=== PATIENT | female | born 1990 | race African-American/Black ===

== ENCOUNTER 2024-09-15 23:23 | Emergency (ER) | payer SELFPAY ==
[2024-09-15 23:30] VITALS: BP 102/82; PULSE 93; RESP 16; TEMP 37.8; O2SAT 98
--- OUTSIDE RECORDS SUMMARY | 2024-09-15 23:59 | XMS_ITS | Clinical Summary ---
Author Organization [facility] [employer] Address [address] [place] [address] Care Team Providers Care Rn Production Name Role Phone [place] Denise MD Primary Care Provider Source Comments [facility] [employer],non-owned Affiliates and Associated Physician Practices is amultiple site organization consisting of ambulatory clinics and hospital sitesin [place], [place], [place] and [place]. This disclosure is being madepursuant to the Care Everywhere program and may not contain all information available regarding this patient. Last updated 18.[facility] [employer] Allergies Active Allergy Reactions Criticality Noted Date Comments Cephalexin Rash Medium 06/09/2017 Penicillins 02/09/2016 Medications * Be aware that medications may not be up to date on this document. Alwaysverify current medications with the patient. Medication Sig Dispensed Refills Start Date End Date Status Vit-Fe Fumarate-FA ( VITAMIN) 28-0.8 MG tablet Take 1 tablet by mouth once daily Active guaiFENesin ER 12hr (MUCINEX) 600 MG tablet Take 1 tablet by mouth every 12 hours 30 tablet 06/09/2017 Active loratadine (CLARITIN) 10 MG tablet Take 1 tablet by mouth once daily 30 tablet 3 06/09/2017 Active benzonatate (TESSALON PERLES) 100 MG capsule Take 1 capsule by mouth 3 times daily as needed for Cough 30 capsule 06/09/2017 Active Active Problems Problem Noted Date Diagnosed Date Shortness of breath 06/09/2017 Supervision of other normal , antepartu m 06/09/2017 Social History Tobacco Use Types Packs/Day Years Used Date Smoking Tobacco: Never Smokeless Tobacco: Never Alcohol Use Standard Drinks/Week Comments No 0 (1 standard drink = 0.6 oz pur e alcohol) Sex and Gender Information Value Date Recorded Sex Assigned at Not on file Gender Identity Not on file Sexual Orientation Not on file Last Filed Vital Signs Vital Sign Reading Time Taken Comments Blood Pressure 117/74 06/09/2017 8:37 AM [employer]OCIATE PROGRAM[employer] Pulse 75 02/09/2016 7:04 AM CDT Temperature 36.8 C (98.3 F) 06/09/2017 6:36 AM ASSOCIATE PROGRAMMER ANALYST Respiratory Rate 16 06/09/2017 7:39 AM ASSOCIATE PROGRAMMER ANALYST Oxygen Saturation 98% 06/09/2017 8:39 AM ASSOCIATE PROGRAMMER ANALYST Inhaled Oxygen Concentration - - Weight 62.6 kg (138 lb) 02/09/2016 7:04 AM CDT Height 162.6 cm (5' 4.02 ) 02/09/2016 7:04 AM CD T Body Mass Index 23.68 02/09/2016 7:04 AM CDT Plan of Treatment Health Maintenance Due Date Last Done Comments PAP SMEAR 1992 HIV SCREENING 12/27/2007 HEPATITIS C SCREENING 12/22/2010 DTAP/TDAP/TD VACCINES (1 - Tdap) 12/27/2011 HEPATITIS B VACCINE (1 of 3 - 19+ 3-dose series) 12/27/2011 COVID-19 VACCINE (1 - 2023-2 5 season) 2024 INFLUENZA VACCINE (#1) 2024 DEPRESSION SCREENING 08/01/2024 ZOSTER VACCINE (1 of 2) 2042 HIB VACCINE Aged Out No longer eligi ble based on patient's age to complete this topic HPV VACCINE Aged Out No longer eligi ble based on patient's age to complete this topic MENINGOCOCCAL (Group B) VACCINE Aged Out No longer eligible based on patient's age to complete this topic MENINGOCOCCAL VACCINE Aged Out No ezra daphne eligible based on patient's age to complete this topic PNEUMOCOCCAL VACCINE Aged Out No long er eligible based on patient's age to complete this topic Advance Directives * Full Code (Latest Code Status on File) Date Activated Date Inactivated Comments 06/09/2017 7:32 AM 06/09/2017 10:03 AM * Full Code Date Activated Date Inactivated Comments 06/09/2017 5:13 AM 06/09/2017 7:32 AM Care Teams Rn Production Relationship Specialty Start Date End Date [place] Denise MD PCP - General Family Medicine 06/09/17
--- OUTSIDE RECORDS SUMMARY | 2024-09-15 23:59 | XMS_ITS | Data Portability ---
Author Organization [facility] Address [address] [place] [address] Care Team Providers Care Rural Health Consultant Name Role Phone NICHOLE RIBEIRO Raw Shellfish Preparer Assessment No assessment recorded. Plan of Treatment Reminders Order Date Submit Date Provider Last Modified By Organization Details Last Modified Time Details Appointments None recorded. Lab influenza virus A + B + SARS-CoV-2 (COVID19) Ag panel, rapid IA, upper respiratory specimen 2023 024 [email or web address] In-Office Order, Internal Use Only DO Not Attach Compendium DO Not Attach Compendium, Do Not Delete/merge, [id number] 13:34:56 rapid strep group A, throat 2023 024 [email or web address] In-Office Order, Internal Use Only DO Not Attach Compendium DO Not Attach Compendium, Do Not Delete/merge, [id number] 4 10:26:00 Referral None recorded. Procedures None recorded. Surgeries None recorded. Imaging None recorded. Medication Orders clindamycin HCl 300 mg capsule 2023 024 [address] [facility] [address], [address], 4 12:05:00 Diflucan 150 mg tablet 2023 024 [email or web address] 1 [facility] [address], [address], 4 15:00:32 ceftriaxone 1 gram solution for injection 2022 023 [email or web address] Not available 3 10:09:52 ketorolac 60 mg/2 mL intramuscul ar solution 2022 023 bluma 1 Not available 4 11:06:11 tramadol 50 mg tablet 2022 [email or web address] [facility] [address], [address], 4 12:05:11 doxycycline monohydrate 100 mg capsule [address] [facility] [address], [address], 4 12:05:02 Medrol (Cabrera) 4 mg tablets in a dose pack [address] [facility] [address], [address], 4 12:05:03 Patient TargetsNo targets recorded. Patient InstructionsNo instructions recorded. Reason for Referral None Reported. Results Created Date Observation Date Name Description Value Unit Range Abnormal Flag Note LastModifiedBy Organization Detail LastModifiedTime 10/14/19 24 10/18/2023 COMPR EHENS OSIRIS METAB OLIC PANEL glucose 83 mg/dL 65-99 normal Fasti ng refer ence inter braulio Not Available [employer] [address] [address] [place], [address], 10/18/2023 17:26:14 10/14/19 24 10/18/2023 COMPR EHENS OSIRIS METAB OLIC PANEL urea nitrogen (BUN) 11 mg/dL 7-25 normal Not Available [facility] [address] [address] [place], [address], 10/18/2023 17:26:14 10/14/19 24 10/18/2023 COMPR EHENS OSIRIS METAB OLIC PANEL creatinine 0.99 mg/dL 0.50-0 .97 high Not Available [address], [address], 10/18/2023 17:26:14 10/14/19 24 10/18/2023 COMPR EHENS OSIRIS METAB OLIC PANEL eGFR 79 mL/mi n/1.7 3m2 > or = 60 normal Not Available [address], [address], 10/18/2023 17:26:14 10/14/19 24 10/18/2023 COMPR EHENS OSIRIS METAB OLIC PANEL BUN/creatini ne ratio 11 (calc ) 6-22 normal Not Available [address], [address], 10/18/2023 17:26:14 10/14/19 24 10/18/2023 COMPR EHENS OSIRIS METAB OLIC PANEL sodium 140 mmol/ L 135-14 6 normal Not Available [address], [address], 10/18/2023 17:26:14 10/14/19 24 10/18/2023 COMPR EHENS OSIRIS METAB OLIC PANEL potassium 3.7 mmol/ L 3.5-5. 3 normal Not Available [address], [address], 10/18/2023 17:26:14 10/14/19 24 10/18/2023 COMPR EHENS OSIRIS METAB OLIC PANEL chloride 102 mmol/ L 98-110 normal Not Available [address], [address], 10/18/2023 17:26:14 10/14/19 24 10/18/2023 COMPR EHENS OSIRIS METAB OLIC PANEL carbon dioxide 27 mmol/ L 20-32 normal Not Available [address], [address], 10/18/2023 17:26:14 10/14/19 24 10/18/2023 COMPR EHENS OSIRIS METAB OLIC PANEL calcium 10.1 mg/dL 8.6-10 .2 normal Not Available [address], [address], 10/18/2023 17:26:14 10/14/19 24 10/18/2023 COMPR EHENS OSIRIS METAB OLIC PANEL protein, total 8.8 g/dL 6.1-8. 1 high Not Available [address], [address], 10/18/2023 17:26:14 10/14/19 24 10/18/2023 COMPR EHENS OSIRIS METAB OLIC PANEL albumin 4.9 g/dL 3.6-5. 1 normal Not Available [address], [address], 10/18/2023 17:26:14 10/14/19 24 10/18/2023 COMPR EHENS OSIRIS METAB OLIC PANEL globulin 3.9 g/dL_ (calc ) 1.9-3. 7 high Not Available [address], [address], 10/18/2023 17:26:14 10/14/19 24 10/18/2023 COMPR EHENS OSIRIS METAB OLIC PANEL albumin/glob ulin ratio 1.3 (calc ) 1.0-2. 5 normal Not Available [address], [address], 10/18/2023 17:26:14 10/14/19 24 10/18/2023 COMPR EHENS OSIRIS METAB OLIC PANEL bilirubin, total 0.5 mg/dL 0.2-1. 2 normal Not Available [address], [address], 10/18/2023 17:26:14 10/14/19 24 10/18/2023 COMPR EHENS OSIRIS METAB OLIC PANEL alkaline phosphatase 54 U/L 31-125 normal Not Available [address], [address], 10/18/2023 17:26:14 10/14/19 24 10/18/2023 COMPR EHENS OSIRIS METAB OLIC PANEL AST 25 U/L 10-30 normal Not Available [address], [address], 10/18/2023 17:26:14 10/14/19 24 10/18/2023 COMPR EHENS OSIRIS METAB OLIC PANEL ALT 11 U/L 6-29 normal Not Available [address], [address], 10/18/2023 17:26:14 10/14/19 24 10/18/2023 CBC (INCL UDES DIFF/ PLT) white blood cell count 8.3 thous and/u L 3.8-10 .8 normal Not Available [address], [address], 10/18/2023 17:26:15 10/14/19 24 10/18/2023 CBC (INCL UDES DIFF/ PLT) red blood cell count 4.29 malick on/uL 3.80-5 .10 normal Not Available [address], [address], 10/18/2023 17:26:15 10/14/19 24 10/18/2023 CBC (INCL UDES DIFF/ PLT) hemoglobin 12.2 g/dL 11.7-1 5.5 normal Not Available [address], [address], 10/18/2023 17:26:15 10/14/19 24 10/18/2023 CBC (INCL UDES DIFF/ PLT) hematocrit 37.1 % 35.0-4 5.0 normal Not Available [address], [address], 10/18/2023 17:26:15 10/14/19 24 10/18/2023 CBC (INCL UDES DIFF/ PLT) MCV 86.5 fL 80.0-1 00.0 normal Not Available [address], [address], 10/18/2023 17:26:15 10/14/19 24 10/18/2023 CBC (INCL UDES DIFF/ PLT) MCH 28.4 pg 27.0-3 3.0 normal Not Available [address], [address], 10/18/2023 17:26:15 10/14/19 24 10/18/2023 CBC (INCL UDES DIFF/ PLT) MCHC 32.9 g/dL 32.0-3 6.0 normal Not Available [address], [address], 10/18/2023 17:26:15 10/14/19 24 10/18/2023 CBC (INCL UDES DIFF/ PLT) RDW 13.4 % 11.0-1 5.0 normal Not Available [address], [address], 10/18/2023 17:26:15 10/14/19 24 10/18/2023 CBC (INCL UDES DIFF/ PLT) platelet count 272 thous and/u L 140-40 0 normal Not Available [address], [address], 10/18/2023 17:26:15 10/14/19 24 10/18/2023 CBC (INCL UDES DIFF/ PLT) MPV 12.2 fL 7.5-12 .5 normal Not Available [address], [address], 10/18/2023 17:26:15 10/14/19 24 10/18/2023 CBC (INCL UDES DIFF/ PLT) absolute neutrophils 4490 cells /uL 1500-7 800 normal Not Available [address], [address], 10/18/2023 17:26:15 10/14/19 24 10/18/2023 CBC (INCL UDES DIFF/ PLT) absolute lymphocytes 3137 cells /uL 850-39 00 normal Not Available [address], [address], 10/18/2023 17:26:15 10/14/19 24 10/18/2023 CBC (INCL UDES DIFF/ PLT) absolute monocytes 398 cells /uL 200-95 0 normal Not Available [address], [address], 10/18/2023 17:26:15 10/14/19 24 10/18/2023 CBC (INCL UDES DIFF/ PLT) absolute eosinophils 191 cells /uL 15-500 normal Not Available [address], [address], 10/18/2023 17:26:15 10/14/19 24 10/18/2023 CBC (INCL UDES DIFF/ PLT) absolute basophils 83 cells /uL 0-200 normal Not Available [address], [address], 10/18/2023 17:26:15 10/14/19 24 10/18/2023 CBC (INCL UDES DIFF/ PLT) neutrophils 54.1 % normal Not Available [address], [address], 10/18/2023 17:26:15 10/14/19 24 10/18/2023 CBC (INCL UDES DIFF/ PLT) lymphocytes 37.8 % normal Not Available [address], [address], 10/18/2023 17:26:15 10/14/19 24 10/18/2023 CBC (INCL UDES DIFF/ PLT) monocytes 4.8 % normal Not Available [address], [address], 10/18/2023 17:26:15 10/14/19 24 10/18/2023 CBC (INCL UDES DIFF/ PLT) eosinophils 2.3 % normal Not Available [address], [address], 10/18/2023 17:26:15 10/14/19 24 10/18/2023 CBC (INCL UDES DIFF/ PLT) basophils 1.0 % normal Not Available [address], [address], 10/18/2023 17:26:15 10/14/19 24 10/18/2023 HEPAT ITIS B SURFA CE ANTIG EN W/REF L CONFI RM hepatitis B surface antigen NON-RE ACTIVE non-re active normal For addit ional infor jn del cid e refer to http: //[facility] bertram hickman.que [employer] gn[employer] ics.c om/fa q/FAQ (This link is being provi ded for infor harvinder chakraborty/ educquentin chambers l purpo ses only. ) Not Available [address] [address] [place], [address], 10/18/2023 17:26:16 10/14/19 24 10/18/2023 HEPAT ITIS B SURFA CE ANTIB ANJALI QL hepatitis B surface antibody ql REACTI VE non-re active abnormal Not Available [address] [address] [place], [address], 10/18/2023 17:26:17 10/14/19 24 10/18/2023 HEPAT ITIS C AB W/REF L TO HCV RNA, QN, PCR hepatitis C antibody NON-RE ACTIVE non-re active normal HCV antib anjali was non-r eacti ve. There is no labor atory evide nce of HCV infec tion. In most cases , no furth er actio n is requi red. Howev er, if recen t HCV expos ure is suspe cted, a test for HCV RNA (test code 29607 ) is sugge julio cesard. For addit ional infor matio n pleas e refer to http: //[facility] n.que [employer]ia gn[employer].c om/fa q/FAQ 22v1 (This link is being provi ded for infor matio nal/ educa trish l purpo ses only. ) Not Available [address] [address] [place], [address], 10/18/2023 17:26:17 10/14/19 24 10/18/2023 HEPAT ITIS B CORE AB TOTAL W/REF L IGM hepatitis B core Ab total NON-RE ACTIVE non-re active normal For addit ional infor matleigh n, pleas e refer to http: //[facility] n.que [employer]ia gn[employer].c om/fa q/FAQ 202 (This link is being provi ded for infor matio nal/ educa trish l purpo ses only. ) Not Available [facility] [address] [place], [address], 10/18/2023 17:26:18 10/14/19 24 10/18/2023 QUANT IFERO N(R)- TB GOLD PLUS, 1 TUBE quantiferon( R)-TB gold plus, 1 tube TNP TEST NOT PERFO RMED No suita ble speci men recei ace. Pleas e revie w the test requi remen ts at testd irect ory.q uestd iagno [employer] .com Not Available [address] [address] [place], [address], 10/18/2023 17:26:19 02/24/20 24 02/24/2024 rapid strep group A, throa t Strep negati ve Not Available In-Office Order Internal Use Only DO Not Attach Compendium DO Not Attach Compendium, Do Not Delete/merge, [id number] 02/24/2024 10:16:06 02/27/20 24 03/01/2024 BETA STREP GP A CULTU RE beta strep gp A culture Commen t abnormal Beta- hemol ytic colon ies, not group A Strep tococ cus isola avelino. Refer ence Range : Negat osiris Penic illin and ampic illin are drugs of choic e for treat ment of beta- hemol ytic strep tococ shanika infec tions . Susce ptibi lity testi ng of penic illin s and other beta- lacta m agent s appro ace by the FDA for treat ment of beta- hemol ytic strep tococ shanika infec tions need not be perfo rmed routi sana becau se nonsu scept ible isola carissa are extre sisi rare in any beta- hemol ytic strep tococ cus and have not been repor avelino for Strep tococ cus pyoge grant (grou p A). (CLSI ) Not Available [facility] ([facility]) [address], [place], [address], 03/01/2024 07:13:00 04/06/20 24 04/06/2024 influ brynn virus A + B + SARS- CoV-2 (COVI D19) Ag panel , rapid IA, upper respi rator y speci men Flu A negati ve Not Available In-Office Order Internal Use Only DO Not Attach Compendium DO Not Attach Compendium, Do Not Delete/merge, [id number] 04/06/2024 09:49:07 04/06/20 24 04/06/2024 influ brynn virus A + B + SARS- CoV-2 (COVI D19) Ag panel , rapid IA, upper respi rator y speci men Flu B negati ve Not Available In-Office Order Internal Use Only DO Not Attach Compendium DO Not Attach Compendium, Do Not Delete/merge, [id number] 04/06/2024 09:49:07 04/06/20 24 04/06/2024 influ brynn virus A + B + SARS- CoV-2 (COVI D19) Ag panel , rapid IA, upper respi rator y speci men Rapid SARS CoV 2 Ag, QL IA, respiratory specimen negati ve Not Available In-Office Order Internal Use Only DO Not Attach Compendium DO Not Attach Compendium, Do Not Delete/merge, [id number] 04/06/2024 09:49:07 Result Notes None recorded. Problems Name Problem SNOMED Code Status Onset Date Resolution Date Notes Provider Name and Address Organization Details Recorded Time Migraine 92385493 Active Stefanie sharp, [place] - [facility] 6 10:05:55 Anxiety state 604094327 Completed 201309/09/2015 Location : None;Sev erity: Moderate ;Progres s: Stable;A dded By: Dana Saunders;Add to Current Problems : NO Not Available [facility] 7 11:46:15 Transien t insomnia 629488983 Completed 201303/01/2014 Location : None;Sev erity: Moderate ;Progres s: Stable;A dded By: Dana Saunders;Add to Current Problems : NO Not Available [facility] 7 11:46:15 Amenorrh ea 71684553 Completed 201409/09/2015 Location : None;Sev erity: Moderate ;Progres s: Stable;A dded By: Dana Saunders;Add to Current Problems : YES Not Available [facility] 7 11:46:15 Acroderm atitis 2901815 Completed 201406/14/2015 Location : None;Sev erity: Moderate ;Progres s: Stable;A dded By: Dana Saunders;Add to Current Problems : YES Not Available [facility] 7 11:46:16 Acute pyelonep hritis without medullar y necrosis 930593125 Completed 201407/22/2015 Location : None;Sev erity: Moderate ;Progres s: Stable;A dded By: Dana Saunders.;Add to Current Problems : YES Not Available [facility] 7 11:46:16 Intestin al infectio us disease 413969184 Completed 201502/15/2016 Location : None;Sev erity: Moderate ;Progres s: Stable;A dded By: Dana Saunders;Add to Current Problems : YES Not Available [facility] 7 11:46:16 Abscess of vulva 32069100 Completed 201208/02/2013 Location : None;Sev erity: Moderate ;Progres s: Stable;A dded By: Sue Sandhu;Add to Current Problems : NO Not Available [facility] 7 11:46:16 Acute frontal sinusiti s 49743251 Completed 201509/09/2015 Location : None;Sev erity: Moderate ;Progres s: Stable;A dded By: Carley Ortega;Add to Current Problems : YES Not Available [facility] 7 11:46:16 Disorder of hair AND/OR hair follicle Completed 201501/17/2016 Location : None;Sev erity: Moderate ;Progres s: Stable;A dded By: Shannen Huffman;Add to Current Problems : YES Not Available [facility] 7 11:46:16 Influenz a with non-resp iratory manifest ation 96311672 Completed 201412/16/2014 Location : None;Sev erity: Moderate ;Progres s: Stable;A dded By: Stefanie Davies;Add to Current Problems : YES Not Available [facility] 7 11:46:16 Headache 10023842 Completed 201405/25/2015 Location : None;Sev erity: Moderate ;Progres s: Stable;A dded By: Stefanie Davies;Add to Current Problems : NO Not Available [facility] 7 11:46:17 Family planning surveill ance Completed 201503/07/2016 Location : None;Sev erity: Moderate ;Progres s: Stable;A dded By: Stefanie Davies;Add to Current Problems : YES Not Available [facility] 7 11:46:17 Screenin g for disorder Completed 201409/09/2015 Location : None;Sev erity: Moderate ;Progres s: Stable;A dded By: Stefanie Davies;Add to Current Problems : NO Not Available [facility] 7 11:46:17 Hidraden itis 99434495 Active 2013 Location : None;Sev erity: Moderate ;Progres s: Stable;A dded By: Stefanie Davies;Add to Current Problems : YES Not Available [facility] 7 11:46:17 Migraine without aura 57231317 Active 2014 Location : None;Sev erity: Moderate ;Progres s: Stable;A dded By: Stefanie Davies;Add to Current Problems : YES Not Available [facility] 7 11:46:17 Pain of breast 77238405 Completed 201302/01/2014 Location : None;Sev erity: Moderate ;Progres s: Stable;A dded By: Stefanie Davies;Add to Current Problems : NO Not Available [facility] 7 11:46:17 Allergic rhinitis caused by pollen 47929666 Completed 201401/03/2015 Location : None;Sev erity: Moderate ;Progres s: Stable;A dded By: Stefanie Davies;Add to Current Problems : NO Not Available [facility] 7 11:46:17 [facility] 15878690 Completed 201409/02/2014 Location : None;Sev erity: Moderate ;Progres s: Stable;A dded By: Stefanie Davies;Add to Current Problems : YES Not Available [facility] 7 11:46:17 Acute pharyngi tis 681193957 Completed 201403/06/2015 Location : None;Sev erity: Moderate ;Progres s: Stable;A dded By: Stefanie Davies;Add to Current Problems : NO Not Available [facility] 7 11:46:17 Contact dermatit is 19958394 Completed 201311/03/2013 Location : None;Sev erity: Moderate ;Progres s: Stable;A dded By: Kristin Denise;Add to Current Problems : NO Not Available [facility] 7 11:46:27 Streptoc occal sore throat 62910712 Completed 201505/07/2016 Location : None;Sev erity: Moderate ;Progres s: Stable;A dded By: Kristin Denise;Add to Current Problems : YES Not Available [facility] 7 11:46:27 Nonvenom ous insect bite of multiple sites 036312587 Completed 201409/09/2015 Location : None;Sev erity: Moderate ;Progres s: Stable;A dded By: Stefanie Davies;Add to Current Problems : YES Not Available [facility] 7 11:46:27 Acute pharyngi tis 042627203 Completed 201504/08/2016 Location : None;Sev erity: Moderate ;Progres s: Stable;A dded By: Stefanie Davies;Add to Current Problems : YES Not Available [facility] 7 11:46:27 Amenorrh ea 24750652 Completed 201509/09/2015 Location : None;Sev erity: Moderate ;Progres s: Stable;A dded By: Barbara Montanez i;Quentin dd to Current Problems : NO Not Available [facility] 7 11:46:27 Vaginiti s and vulvovag initis Completed 201403/21/2015 Location : None;Sev erity: Moderate ;Progres s: Stable;A dded By: Stefanie Davies;Add to Current Problems : YES Not Available [facility] 7 11:46:28 Malaise and fatigue 032185331 Completed 201309/09/2015 Location : None;Sev erity: Moderate ;Progres s: Stable;A dded By: Marya Astudillo;Add to Current Problems : YES Not Available [facility] 7 11:46:28 Cough 59533557 Completed 201309/02/2013 Location : None;Sev erity: Moderate ;Progres s: Stable;A dded By: Jennifer Walter;Add to Current Problems : NO Not Available [facility] 7 11:46:28 Acute upper respirat ory infectio n of multiple sites Completed 201406/21/2015 Location : None;Sev erity: Moderate ;Progres s: Stable;A dded By: Stefanie Davies;Add to Current Problems : YES Not Available [facility] 7 11:46:28 Eruption 656922578 Completed 201408/09/2015 Location : None;Sev erity: Moderate ;Progres s: Stable;A dded By: Stefanie Davies;Add to Current Problems : YES Not Available [facility] 11:46:28 Problem Notes None recorded. Procedures Surgical History Date Name Laterality Status Provider Name and Address Organization Details Recorded Time delivery completed Enedina Lan MD Attn: [address] [place], [address], [facility] 10/13/2020 21:39:05 7 delivery completed KVNG Stern Attn: Accounting[address] [place], [address], [facility] 06/16/2017 22:39:55 Imaging Results None recorded. Procedure Notes None recorded. Medical Equipment None Reported. Allergies Allergen ID Allergen Name Allergen Category Reaction Reaction Severity Criticality Documentation Date Start Date Code Code System Note Provider Name and Address Organization Details Recorded Time 06290 amoxicill in medicatio n Not available Not available Not available 05/28/2016 723 RxNorm Not Available Not Available Not Available 19091 Product containin g penicilli n and antibioti c (product) medicatio n Not available Not available Not available 05/28/2016 78464 05 SNOMED Not Available Not Available Not Available 67208 Keflex medicatio n Not available Not available Not available 05/28/2016 7 RxNorm Not Available Not Available Not Available 33231 Amoxil medicatio n Not available Not available Not available 08/04/20162013 9 RxNorm Sever ity: Moder ate; Comme nt: Aller gy Type: Aller gy; Not Available Not Available Not Available Medications Name Sig Start Date Stop Date Status Note LastModified by Organization Details LastModified Time Prescripti on - Prior Authorizat ion Request 09/06 completed Not Available Not Available Not Available doxycyclin e hyclate 100 mg capsule take 1 capsule by mouth every 12hrs 06/07 completed RxNorm : 400924 8;Allo w Substi tution : True Not Available Not Available Not Available clindamyci n HCl 300 mg capsule TAKE 1 CAPSULE BY MOUTH THREE TIMES A DAY FOR 7 DAYS 02/16 completed Not Available Not Available Not Available triamcinol one acetonide 0.5 % topical cream Apply thin film to affected area bid <2 weeks. 01/29 completed RxNorm : 766139 6;Allo w Substi tution : True Not Available Not Available Not Available azithromyc in 250 mg tablet TAKE 2 TABLETS BY MOUTH TODAY, THEN TAKE 1 TABLET DAILY FOR 4 DAYS DIRECTED 05/28 completed Not Available Not Available Not Available fluconazol e 150 mg tablet TAKE 1 BY MOUTH DAILY NEEDED, AND REPEAT IN 72 HOURS IF NOT TOTALLY CLEAR 05/28 completed Not Available Not Available Not Available Patanol 0.1 % eye drops Instill 1 drop(s) to affected eye(s) bid 12/15 completed RxNorm : 171410 1;Allo w Substi tution : True Not Available Not Available Not Available hydrocodon e 5 mg-acetami nophen 325 mg tablet TAKE 1 2 TABLETS BY MOUTH EVERY 4 HOURS NEEDED FOR PAIN 09/06 completed Not Available Not Available Not Available Keflex 500 mg capsule Take 1 capsule(s ) by mouth q12h 02/18 completed RxNorm : 519698 ;Allow Substi tution : True Not Available Not Available Not Available metronidaz ole 0.75 % (37.5 mg/5 gram) vaginal gel Insert 1 applicato rful(s) in vagina at bedtime for 5 days 01/30 completed Not Available Not Available Not Available ondansetro n HCl 4 mg tablet TAKE 1 TABLET BY MOUTH 2 TIMES A DAY NEEDED FOR NAUSEA 09/06 completed Not Available Not Available Not Available spironolac tone 100 mg tablet TAKE TWO TABLETS (200 MG) BY MOUTH DAILY. STAY HYDRATED 02/16 completed Not Available Not Available Not Available clindamyci n HCl 150 mg capsule Take 1 cap po three times daily with food 05/21 completed RxNorm : 664371 ;Allow Substi tution : True Not Available Not Available Not Available metronidaz ole 500 mg tablet TAKE 1 TABLET BY MOUTH TWICE A DAY 02/16 completed Not Available Not Available Not Available melatonin 3 mg tablet taje 1-3 QHS prn up to 3 nights in a row 07/09 completed RxNorm : 389700 ;Allow Substi tution : True Not Available Not Available Not Available Tamiflu 75 mg capsule Take 1 capsule(s ) by mouth daily for 10 days 08/02 completed RxNorm : 740108 ;Allow Substi tution : True Not Available Not Available Not Available sulfametho xazole 800 mg-trimeth oprim 160 mg tablet TAKE 1 TABLET BY MOUTH TWICE A DAY FOR 7 DAYS 07/22 completed Not Available Not Available Not Available tramadol 50 mg tablet TAKE 1 TABLET BY MOUTH EVERY 6 HOURS NEEDED 02/16 completed Not Available Not Available Not Available triamcinol one acetonide 0.1 % topical cream Apply thin film to affected area bid 07/29 completed RxNorm : 402011 4;Allo w Substi tution : True Not Available Not Available Not Available Amoxil 500 mg tablet Take 1 tablet(s) by mouth q12h 10/08 completed Allow Substi tution : True Not Available Not Available Not Available Vitamin tablet Take 1 tablet every day by oral route. 08/17 completed Not Available Not Available Not Available ceftriaxon e 1 gram solution for injection Take 1 g by injection route. 07/22 completed Not Available Not Available Not Available methocarba mol 750 mg tablet TAKE 1 TABLET BY MOUTH 3 TIMES A DAY NEEDED 09/06 completed Not Available Not Available Not Available clindamyci n 1 % topical gel 09/06 completed Not Available Not Available Not Available Depo-Prove ra 150 mg/mL intramuscu lar suspension Inject q 12 - 14 weeks 08/19 completed RxNorm : 307111 8;Allo w Substi tution : True Not Available Not Available Not Available gentamicin 0.3 % eye drops 03/24 completed Not Available Not Available Not Available benzonatat e 100 mg capsule 08/17 completed Not Available Not Available Not Available doxycyclin e monohydrat e 100 mg capsule TAKE 1 CAPSULE BY MOUTH EVERY DAY FOR 90 DAYS. STOP IF SEXUALLY ACTIVE 02/16 completed Not Available Not Available Not Available Desogen 0.15 mg-0.03 mg tablet Take 1 tablet(s) by mouth daily as directed. 01/29 completed Allow Substi tution : True Not Available Not Available Not Available docusate sodium 100 mg capsule TAKE 1 CAPSULE BY MOUTH DAILY 09/06 completed Not Available Not Available Not Available montelukas t 10 mg tablet TAKE 1 TABLET BY MOUTH EVERY DAY 09/06 completed Not Available Not Available Not Available methylpred nisolone 4 mg tablets in a dose pack TAKE 6 TABS ON DAY 1 DIRECTED ON PACKAGE. DECREASE BY 1 TAB EACH DAY FOR A TOTAL 6 DAYS W/ FOOD 02/16 completed Not Available Not Available Not Available ferrous sulfate 325 mg (65 mg iron) tablet,del ayed release TAKE 1 TABLET BY MOUTH EVERY 24 HOURS 09/06 completed Not Available Not Available Not Available Vitamin D2 1,250 mcg (50,000 unit) capsule Take 1 capsule weekly for 12 weeks along with an OTC Vitamin D3 5,000 IU once daily 11/17 completed Allow Substi tution : True Not Available Not Available Not Available ketorolac 60 mg/2 mL intramuscu lar solution Inject 2 mL every 6 hours by intramusc ular route. 08/26 completed Not Available Not Available Not Available Terazol 7 0.4 % vaginal cream Insert 1 applicato rful(s) in vagina at bedtime for 7 days 03/27 completed RxNorm : [id number] ;Allow Substi tution : True Not Available Not Available Not Available loratadine 10 mg tablet 09/06 completed Not Available Not Available Not Available naproxen 500 mg tablet TAKE 1 TABLET BY MOUTH TWICE A DAY WITH FOOD 09/06 completed Not Available Not Available Not Available metoclopra mide 10 mg tablet TAKE 1 TABLET BY MOUTH FOUR TIMES A DAY BEFORE MEALS AND NIGHTLY FOR 15 DAYS 09/06 completed Not Available Not Available Not Available erythromyc in with ethanol 2 % topical gel Apply to underarms BID 09/06 completed Not Available Not Available Not Available albuterol (refill) 90 mcg/actuat ion aerosol inhaler Inhale 2 puff(s) by mouth q 4 to 6 hr 02/18 completed RxNorm : [id number] ;Allow Substi tution : True Not Available Not Available Not Available etonogestr el 0.12 mg-ethinyl estradiol 0.015 mg/24 hr vaginal ring INSERT 1 RING VAGINALLY DIRECTED. REMOVE AFTER 3 WEEKS & WAIT 7 DAYS BEFORE INSERTING A NEW RING 07/12 completed Not Available Not Available Not Available escitalopr am 10 mg tablet Take 1 tablet every day by oral route. 09/06 completed Not Available Not Available Not Available Humira 40 mg/0.8 mL subcutaneo us syringe kit Inject 0.8 mL every 2 weeks by subcutane ous route. 05/28 completed Not Available Not Available Not Available Steuben-Linya h 0.25 mg-35 mcg tablet Take 1 tablet every day by oral route. 09/06 completed Not Available Not Available Not Available Sofie Fe 08/20 (28) 1 mg-20 mcg (21)/75 mg (7) tablet Take 1 tablet(s) by mouth daily as directed. 01/30 completed Not Available Not Available Not Available Flonase Allergy Relief 50 mcg/actuat ion nasal spray,susp ension Hancock 1 spray every day by intranasa l route as needed. 09/06 completed Not Available Not Available Not Available Slynd 4 mg (28) tablet TAKE 1 TABLET BY MOUTH EVERY DAY 07/22 completed Not Available Not Available Not Available Paxlovid 300 mg (150 mg x 2)-100 mg tablets in a dose pack PLEASE SEE ATTACHED FOR DETAILED DIRECTION S 08/26 completed Not Available Not Available Not Available Vitals Date Recorded Body height Body mass index (BMI) Body weight Body temperature Oxygen saturation Oxygen saturation in Arterial blood by Pulse oximetry Heart rate Heart rate Systolic blood pressure Diastolic blood pressure Provider Name and Address Organization Details Last Updated DateTime 3 161.29 cm 30.3 kg/m2 78259.0 7 g 97.1 [degF] 99 % 99 % 48 /min 54 /min 127 mm[Hg] 80 mm[Hg] Summer Francis MA [facility] 3 11:00:08 Date Recorded Body height Body temperature Oxygen saturation Oxygen saturation in Arterial blood by Pulse oximetry Heart rate Body mass index (BMI) Body weight Systolic blood pressure Diastolic blood pressure Provider Name and Address Organization Details Last Updated DateTime 4 161.29 cm 97.3 [degF] 96 % 96 % 70 /min 30.5 kg/m2 99346.6 6 g 110 mm[Hg] 68 mm[Hg] Birdie Sumner MA [facility] 4 12:17:11 Date Recorded Body height Provider Name an d Address Organization Details Last Updated DateTime 02/24/2024 161.29 cm Silvia Justice [facility] 02/24/2024 1 0:03:25 Social History Question Answer Notes LastModified by Organizat ion Details LastModified Time Tobacco Smoking Status [facility]2016 11:41:33 Do You Have An Advance Directive? No Information not available 09/06/2022 What Is Your Level Of Alcohol Consumption? Occasional Information not available 09/06/2022 Are You Blind Or Do You Have Difficulty Seeing? No Information not available 09/06/2022 What Is Your Level Of Caffeine Consumption? Occasional Information not available 09/06/2022 Are You Currently Employed? Yes Information not available 09/06/2022 Are You Deaf Or Do You Have Serious Difficulty Hearing? No Information not available 09/06/2022 What Type Of Diet Are You Following? REGULAR Information not available 09/06/2022 What Was The Date Of Your Most Recent Tobacco Screening? 02/24/2024 wandres Information not available 02/24/2024 What Is Your Relationship Status? Single Information not available 09/06/2022 Do You Use Your Seat Belt Or Car Seat Routinely? Yes Information not available 09/06/2022 Do You Feel Stressed (tense, Restless, Nervous, Or Anxious, Or Unable To Sleep At Night)? [id number] Information not available 09/06/2022 Do You Use Any Illicit Or Recreational Drugs? Yes Marijuana Information not available 10/06/2022 Do You Or Have You Ever Used Any Other Forms Of Tobacco Or Nicotine? No Information not available 10/06/2022 Sex: Female Functional Status Question Answer Note LastModified by Organization D etails LastModified Time Are you able to care for yourself? Yes Information not available 09/06/2022 What is your exercise level? Moderate Information not available 09/06/2022 Mental Status None recorded. Family History Relationship Description Onset Age of this Age Resolved Age Notes LastModified by Organization Details LastModified Time Mother Hypertensive disorder [email or web address] Not available 16:11:06 Mother Kidney stone [email or web address] Not a vailable 07/27/2017 16:11:48 Sister Hypertensive disorder [email or web address] Not available 16:11:06 Maternal Aunt Asthma ssadlowskima Not available 07/27/2017 16:11:37 Paternal Grandmother Type 2 diabetes mellitus ssadlowskima Not available 16:11:59 Maternal Uncle Schizophreni a ssadlowskima Not available 16:12:09 Medical History Condition Response Allergies Y Gynecological History Statement/Question Response Menses Monthly Y Duration of Flow (days) 4 Current Control Method BCPs Date of LMP 10/01/2022 Age at First Child 26 Obstetrics History GPAL:G 0 P 0 0 0 0 Immunizations Vaccine Type Date Status Note Provider Nam e and Address Organization Details Recorded Time Tdap completed Flori Davidson LPN null, [place] - [facility] 08/28/2020 12:00:40 Influenza, split virus, trivalent, preservative 4 completed Not Available [facility] 09/01/2019 02:11:37 Tdap 5 completed Not Available [facility] 09/01/2019 02:11:37 HPV, quadrivalent 5 completed Not Available [facility] 09/01/2019 02:11:37 Influenza, split virus, quadrivalent, preservative 5 completed Not Available [facility] 09/01/2019 02:11:37 HPV, quadrivalent 6 completed Not Available [facility] 09/01/2019 02:11:37 DTaP 4 completed Not Available [facility] 08/04/2016 05:22:11 MMR 4 completed Not Available [facility] 08/04/2016 05:22:12 IPV 8 completed Not Available [facility] 08/04/2016 05:22:12 IPV 3 completed Not Available [facility] 08/04/2016 05:22:13 DTaP 3 completed Not Available [facility] 08/04/2016 05:22:13 Meningococcal MCV4O 7 completed Not Available [facility] 08/04/2016 05:22:13 HPV, quadrivalent 5 completed Not Available [facility] 09/01/2019 02:11:37 IPV 7 completed Not Available [facility] 08/04/2016 05:22:14 IPV 6 completed Not Available [facility] 08/04/2016 05:22:15 DTaP 7 completed Not Available [facility] 08/04/2016 05:22:15 varicella 6 completed Not Available [facility] 08/04/2016 05:22:16 DTaP 6 completed Not Available [facility] 08/04/2016 05:22:17 Hib (HbOC) 4 completed Not Available [facility] 08/04/2016 05:22:17 Tdap 7 completed Not Available [facility] 08/04/2016 05:22:18 DTaP 8 completed Not Available [facility] 08/04/2016 05:22:18 MMR 7 completed Not Available [facility] 08/04/2016 05:22:19 Hib (HbOC) 3 completed Not Available [facility] 08/04/2016 05:22:20 Hep B, adolescent or pediatric 7 completed Not Available [facility] 08/04/2016 05:22:20 Hep B, adolescent or pediatric 3 completed Not Available [facility] 08/04/2016 05:22:21 IPV 4 completed Not Available [facility] 08/04/2016 05:22:22 Hep B, adolescent or pediatric 3 completed Not Available [facility] 08/04/2016 05:22:23 Tdap 7 completed KVNG Stern Attn: Accounting[address] [facility], [place], [address], [facility] 08/17/2017 12:03:03 Past Encounters Encounter ID Performer Location Encounter Start Date Encounter Closed Date Diagnosis/Indication Diagnosis SNOMED-CT Code Diagnosis ICD10 Code Diagnosis [facility] [id number] [facility] [address] [place] [address] 05/14/2016 09:51:19 05/14/2016 10:30:30 Vitamin D deficiency 31119910 E55.9 Hyperlipid emia screening 539382747 Z13.220 Diabetes m ellitus screening 072536720 Z13.1 [id number] [facility] [address] [place] [address] 05/27/2016 19:27:51 05/30/2016 18:03:18 Amenorrhea 70545500 N91.2 [id number] Shannen Huffman [facility] [address] [place] [address] 07/05/2016 11:12:32 07/07/2016 14:43:43 Pain in throat 733849248 R07.0 Acute maxi llary sinusitis 50660823 J01.00 [id number] KVNG Stern [facility] [address] [place] [address] 08/20/2016 15:03:22 08/23/2016 11:18:42 Hidradenitis suppurativa of vulva 511670444 L73.2 continue with heat soaks, avoid silk clothes since that tends to bother it and avoid shaving until gone [id number] KVNG Stern [facility] [address] [place] [address] 08/30/2016 14:11:49 08/31/2016 11:14:25 Irregular periods 01914833 N92.6 STill adjusting to depo provera withdrawal . If this pattern continues, TSH, CBC and . Likely expect a period a month from now. [id number] KVNG Stern [facility] [address] [place] [address] 10/21/2016 11:09:56 10/22/2016 11:21:00 Secondary physiologic amenorrhea 98788555 N91.1 note for work given for no lifting, pushing or pulling >10 pounds [id number] KVNG Stern [facility] [address] [place] [address] 08/17/2017 10:56:28 08/17/2017 15:18:03 Hidradenitis suppurativa 21163470 L73.2 discussed back up control and different permanent options. [id number] KVNG Stern [facility] [address] [place] [address] 11/29/2017 10:35:05 11/30/2017 13:05:46 depression 96390574 O99.536 [id number] Kassy Rodríguez [facility] [address] [place] [address] 03/24/2018 11:21:16 03/27/2018 10:03:33 Screening for malignant neoplasm of cervix 326250387 Z12.4 Vaginal discharge 984485 006 N89.8 Venereal d isease screening 859967172 Z11.3 Adult heal th examination 792814852 Z00.00 [id number] KVNG Stern [facility] [address] [place] [address] 01/30/2019 11:31:11 01/31/2019 11:30:00 Sprain of foot 96865403 S93.602A boot and will rexray in 2 weeks if pain and swelling persists due to bruising and swelling, no standing while at work the next 2 days Sprain of left ankle 812 5351587 9198371 S93.402A [id number] KVNG Stern [facility] [address] [place] [address] 04/03/2019 09:33:29 04/03/2019 11:57:08 Tuberculosis screening 573405230 Z11.1 Adult heal th examination 673552064 Z00.00 not ready to have another baby Screening for malignant neoplasm of cervix 866340695 Z12.4 Skin tag 917559750 L91.8 HIV screening 122083968 Z11.4 [id number] Jessy Ryan [facility] ([address]) [address] [place] [address] 07/11/2019 09:27:19 07/12/2019 09:20:36 Hidradenitis suppurativa 40974533 L73.2 Erwin Stage 2 [id number] Flori Davidson LPN [facility] [address] [place] [address] 08/28/2020 11:44:46 08/28/2020 12:15:30 Administration of diphtheria, pertussis, and tetanus vaccine 719002327 Z23 [id number] KVNG Stern [facility] [address] [place] [address] 09/06/2022 11:52:42 09/07/2022 10:20:38 Hidradenitis 04788762 L73.2 chronic with scarring, pits, open tracking lesions likely R>L, needs surgery. I will switch her suppressiv e dose to bactrim, await culture, and consider spiroloact one as well for suppressio n. She states her last 2 months of were her best with no active infections . [id number] KVNG Stern [facility] [address] [place] [address] 10/06/2022 10:43:56 10/06/2022 12:59:16 Acute urticaria 831686901 L50.9 start MDP and zyrtec daily and wash new hair in hopes that's the cause due to skin distributi on and that it's not from her new spironolac tone for her hidradenit is which has worked wonders. [id number] KVNG Stern [facility] [address] [place] [address] 07/12/2023 09:46:11 07/13/2023 16:17:51 Hidradenitis 79693712 L73.2 chronic with scarring, pits, open tracking lesions likely R>L. Will restart her daily 100mg spironolac tone. She is NOT sexually active at all right now and will not be. Will continue BID doxy for 10-14 days and then daily thereafter . STop her SLYND. Will I&D in the near future if allows. [id number] KVNG Stern [facility] [address] [place] [address] 08/26/2023 11:13:04 08/29/2023 16:05:08 Acute sinusitis 29929370 J01.90 all started with her COVID infection and never totally got over it for the past month. Has been taking doxy for a month, was out for a few days and that's when it got much worse with thick gluey purulent drainage. Has restarted low dose suppressiv e dose. Will send broader spectrum antibiotic for her chronic sinusitis and she will let me know if no better. [id number] Silvia Justice [facility] [address] [place] [address] 02/24/2024 09:53:13 02/24/2024 10:37:16 Sore throat 525741027 J02.9 [id number] Stefanie Davies MA [facility] [address] [place] [address] 04/06/2024 09:33:04 04/06/2024 12:46:09 Upper respiratory infection 73392074 J06.9 Health Concerns Section Related Observation LastModified by Organization Detai ls LastModified Time None Recorded Concern Status LastModified by Organization Details LastModified Time None Recorded Advance Directives Directive N: Payers Encounter Date Sequence Insurance Name Policy Number Policy Leija Covered Member ID Leija Member ID Guarantor Name 10/06/2022 1 [facility] [id number] Stefaniesandra Davies [id number] Stefanie Davies 07/12/2023 1 [facility] [id number] Stefanie Davies [id number] Stefanie Davies 08/26/2023 SLIDING FEE SCHEDULE - DISCOUNT Stefanie Davies 02/24/2024 2 [facility] ON OR AFTER 01/29/21 (MEDICAID REPLACEMENT - HMO) Stefanie Davies [id number] Stefanie Davies 02/24/2024 1 [employer] - ALLIED BENEFITS - OPEN ACCESS [id number] Stefanie Davies [id number] Stefanie Davies 04/06/2024 2 [facility] ON OR AFTER 01/29/21 (MEDICAID REPLACEMENT - HMO) Stefanie Davies [id number] Stefanie Davies 04/06/2024 1 [employer] - ALLIED BENEFITS - OPEN ACCESS [id number] Stefanie Davies [id number] Stefanie Davies Notes Date Note Type Note Provider Name and Address Organization Details Recorded Time 10/06/2022 text/html Rash/Skin LesionReported bypatient.Location:[facility]; cheek; chest; arms; hands; abdomen; back Quality:itchy;red;mu ltiple;spreading Severity:moderate Duration:has noted for (2) Onset/Timing:abrupt onset Context:no new detergents or skin products; no one else with similar rash;scratching Alleviating Factors:nothing gives relief Aggravating Factors:nothing makes it worse Associated Symptoms:no fever; no cold symptoms; no nausea; no vomiting; no diarrhea; no urinary symptoms; no fatigue; no change in weight Treatment History:no history of treatment KVNG Stern Attn: Accounting[address] [place], [address], [facility] 10/06/2022 11:28:59 07/12/2023 text/html Rash/Skin LesionReported bypatient.Notes:Has had two open cysts for months, but one that was closed and now enlarging and acutely painful, didn't sleep at all last night due to pain. No fevers.Has been off of the doxy and spironolactone for months now, since starting nuvaring and SLYND her cysts returned, so she stopped the other two. Went to ER Tuesday and restarted BID doxy, cyst was too deep to I&D KVNG Stern Attn: Accounting[address] [place], [address], [facility] 07/12/2023 09:55:03 08/26/2023 text/html Sinusitis/Allerg yRep orted bypatient.Associated Symptoms:nasal discharge from both nostrils;nausea or vomiting(nausea from drainage);sore throat(first thing in the morning);thick phlegm in throat;constantly clearing the throat;nasal discharge(thick, dark green);nasal passage blockage bilaterally;ear fullness Quality:hoarseness;c ongested;colored phlegmNotes:all started with her COVID infection and never totally got over it. Has been taking doxy for a month, was out for a few days and that's when it got much worse. Has restarted low dose suppressive dose. has had congested nose for a month now. Goes back and forth between constantly running, and being stuffy. Drainage has been clear up until 3 days ago. thick, green. also drainage causes me to cough in the mornings KVNG Stern Attn: Accounting[address] [facility], [place], [address], [facility] 08/26/2023 12:43:53 OBGyn Episode Ob Episode Information Episode Created Date Number of Fetuses Patient Bloodtype Patient rh Status Prepregnancy Weight lbs Domestic Partner Domestic Partner Phone Father Name [employer]r Status 10/14/19 21 1 CLOSED Fetus Data First Name Last Name Admitted to NICU Weight (g) Sex Living Outcome Pediatric Complications Fetus ID Race Codes Race Delivery Type 2466.17 [id number] F Full Term [id number] Repeat Magdy Calculation Initial Magdy Date Initial Exam Date Initial Exam Provider Initial Ultrasound Date Last Menstrual Period Date Ultra Sound Weeks Gestation 0 Eighteen To Twenty Week Magdy Update Ultra Sound Date Fundal Height At Umbil Quickening Date Ultra Sound Latest Weeks Gestation Final Magdy Confirmed By Final Magdy Confirmed Date Final Magdy Date Ultra Sound Latest Days Gestation 0 0 Menstrual History Last Menstrual Date Menses Monthly On Bcp Conception Prior Menses Frequency Hcg Plus Date Menarche Onset Age Delivery Information Delivery Date Delivery Type Labor Anesthesia Weeks Gestation Incision Type Labor Labor Length Hrs Delivered By Post Complications Tubal Sterilization Discharge Date Comments Discharge Information Feeding Method Contraceptive Method Maternal HG B and HCT Levels Ob Episode Information Episode Created Date Number of Fetuses Patient Bloodtype Patient rh Status Prepregnancy Weight lbs Domestic Partner Domestic Partner Phone Father Name Railroad Brake Repairer Status 10/14/19 21 1 CLOSED Fetus Data First Name Last Name Admitted to NICU Weight (g) Sex Living Outcome Pediatric Complications Fetus ID Race Codes Race Delivery Type 2211.26 1 [id number] Primary Magdy Calculation Initial Magdy Date Initial Exam Date Initial Exam Provider Initial Ultrasound Date Last Menstrual Period Date Ultra Sound Weeks Gestation 0 Eighteen To Twenty Week Magdy Update Ultra Sound Date Fundal Height At Umbil Quickening Date Ultra Sound Latest Weeks Gestation Final Magdy Confirmed By Final Magdy Confirmed Date Final Magdy Date Ultra Sound Latest Days Gestation 0 0 Menstrual History Last Menstrual Date Menses Monthly On Bcp Conception Prior Menses Frequency Hcg Plus Date Menarche Onset Age Delivery Information Delivery Date Delivery Type Labor Anesthesia Weeks Gestation Incision Type Labor Labor Length Hrs Delivered By Post Complications Tubal Sterilization Discharge Date Comments 7 38 Discharge Information Feeding Method Contraceptive Method Maternal HG B and HCT Levels
--- OUTSIDE RECORDS SUMMARY | 2024-09-15 23:59 | XMS_ITS | Encounter Summary ---
Author Organization [facility] Facility Care Team Providers Care Site Project Manager Name Role Phone Shannen Huffman MD Primary Care Provider [phone] ParentDana Primary Care Provider + [phone] Encounter Details Date Type Department Care Team (Latest Contact Info) Description 10/22/2016 Orders Only [facility] ProviderNona MD [address] [place] [address] Social History Tobacco Use Types Packs/Day Years Used Date Smoking Tobacco: Never Assessed Comments Unknown Sex and Gender Information Value Date Recorded Sex Assigned at Not on file Legal Sex Female 12:55 PM CDT Gender Identity Not on file Sexual Orientation Not on file documented as of this encounter Plan of Treatment Not on file documented as of this encounter Procedures Procedure Name Priority Date/Time Associated Diagnosis Comments SCAN - LABS 10/22/2016 12:00 AM CDT documented in this encounter Results * SCAN - LABS (10/22/2016 12:00 AM CDT) Narrative 10/22/2016 12:00 AM CDT Ordered by an unspecified provider. Historical Provider Final Res ult documented in this encounter Visit Diagnoses Not on filedocumented in this encounter Care Teams Site Project Manager Relationship Specialty Start Date End Date Shannen Huffman MD [address] [address] PCP - General 05/20/17 09/20/23 Parent, KVNG Hilton [address] [address] PCP - General Family Practice 09/21/23 documented as of this encounter
--- OUTSIDE RECORDS SUMMARY | 2024-09-15 23:59 | XMS_ITS | Clinical Summary ---
Author Organization [facility] Address [address] [place], [place] [address] Phone Care Team Providers Care Mold Washer Name Role Phone Shannen Huffman MD Primary Care Provider [phone] Allergies Active Allergy Reactions Criticality Noted Date Comments Amoxicillin Swelling Low 03/21/2019 Cephalexin Rash Medium 06/09/2017 Penicillins Swelling Low 02/09/2016 Medications flu vaccine quadrivalent (6 mo+)(PF)(FUARIX QUAD,FLULAVAL QUAD/FLUZONE QUAD) 60 mcg/0.5 mL IM syringe Inject 0.5 mL (60 mcg) by intramuscular injection. 0.5 mL 05/02/20 19 Active fluticasone propionate (FLONASE) 50 mcg/spray [place], Suspension nasal inhalerIndicatio ns:Allergic rhinitis, unspecified [place] 1 spray(s) every day by intranasal route as needed. 16 Gram 3 09/06/2019 9:05 AM HEEL MOLDER 09/05/19 20 Active Active Problems No known active problems Immunizations Immunization Administration Dates Next Due Influenza Seasonal Unspecified Formulation IM Social History Tobacco Use Types Packs/Day Years Used Date Smoking Tobacco: Never Alcohol Use Standard Drinks/Week Comments Yes 0 (1 standard drink = 0.6 oz pur e alcohol) socially Comments No Sex and Gender Information Value Date Recorded Sex Assigned at Not on file Legal Sex Female 12:21 PM CDT Gender Identity Not on file Sexual Orientation Not on file Last Filed Vital Signs Vital Sign Reading Time Taken Comments Blood Pressure 126/69 03/21/2019 12:37 PM CDT Pulse 71 03/21/2019 12:37 PM CDT Temperature 37.3 C (99.2 F) 03/21/2019 12:37 PM CDT Respiratory Rate 16 03/21/2019 12:37 PM CDT Oxygen Saturation 100% 03/21/2019 12:37 PM CDT Inhaled Oxygen Concentration - - Weight - - Height - - Body Mass Index - - Plan of Treatment Health Maintenance Due Date Last Done Comments CERVICAL CANCER SCREENING 2022 INFLUENZA VACCINE (#1) 2024 9, 05/06/2015, 05/13/2014 DTAP/TDAP/TD VACCINES (9 - Td or Tdap) 04/12/2027 04/12/2017, 03/12/2015, 09/12/2006, Additional history exists HEPATITIS B VACCINES Completed 04/02/1997, 03/25/1993, 1992 HPV VACCINES Completed 09/11/2015, 12/2014, 03/12/2015 PNEUMOCOCCAL VACCINE 0-64 YEARS Aged Out No longer eligible based on patient's age to complete this topic Insurance MEDICAID RX MERIDIANRX Medicare Part D RX INFOCROSSING Medicaid RX [employer]RX Medicare Part D RX MEDIMPACT Member Subscriber Plan / Payer (Ef fective for All Dates) Name:Stefanie Davies Relation to Subscriber:Self Name:Stefanie Davies Payer ID:Not on file Group ID:[id number] Type:RX Commercial Address: [place] Care Teams Mold Washer Relationship Specialty Start Date End Date Shannen Huffman MD [address] [id number] PCP - General Family Practice 03/21/19
--- OUTSIDE RECORDS SUMMARY | 2024-09-15 23:59 | XMS_ITS | Patient Health Summary ---
Author Organization [facility] Address [address] [place] [address] Care Team Providers Care Oracle Engineer Name Role Phone Chico Denise MD Primary Care Provider Note from [facility],non-owned Affiliates and Associated Physician Practices is amultiple site organization consisting of ambulatory clinics and hospital sitesin [place], [place], [place] and [place]. This disclosure is being madepursuant to the Care Everywhere program and may not contain all information available regarding this patient. Last updated 18.[facility] Allergies * Cephalexin(Rash) -Medium Criticality * Penicillins Medications * Be aware that medications may not be up to date on this document. Alwaysverify current medications with the patient. * Vit-Fe Fumarate-FA ( VITAMIN) 28-0.8 MG tablet Take 1 tablet by mouth once daily * guaiFENesin ER 12hr (MUCINEX) 600 MG tablet(Started 06/09/2017) Take 1 tablet by mouth every 12 hours * loratadine (CLARITIN) 10 MG tablet(Started 06/09/2017) Take 1 tablet by mouth once daily 3 refills remaining * benzonatate (TESSALON PERLES) 100 MG capsule(Started 06/09/2017) Take 1 capsule by mouth 3 times daily as needed for Cough Active Problems Problem Noted Date Diagnosed Date Shortness of breath 06/09/2017 Supervision of other normal , antepartu 06/09/2017 Social History Tobacco Use Types Packs/Day [...] Comments Blood Pressure 117/74 06/09/2017 8:37 AM SNACK BAR ATTENDANT Pulse 75 02/09/2016 7:04 AM CDT Temperature 36.8 C (98.3 F) 06/09/2017 6:36 AM SNACK BAR ATTENDANT Respiratory Rate 16 06/09/2017 7:39 AM SNACK BAR ATTENDANT Oxygen Saturation 98% 06/09/2017 8:39 AM SNACK BAR ATTENDANT Inhaled Oxygen Concentration - - Weight 62.6 kg (138 lb) 02/09/2016 7:04 AM CDT Height 162.6 cm (5' 4.02 ) 02/09/2016 7:04 AM CD T Body Mass Index 23.68 02/09/2016 7:04 AM CDT Procedures * CARDIAC EKG ORDER(Performed 06/13/2017) * NONSTRESS TEST(Performed 06/10/2017) * RESPIRATORY PATHOGEN PANEL BY PCR(Performed 06/09/2017) Performed for Shortness of breath * CT ANGIO CHEST PULM EMBOLISM(Performed 06/09/2017) Performed for Shortness of breath, Supervision of other normal , antepartum (HCC) Results * CARDIAC EKG ORDER (06/13/2017 10:19 PM SNACK BAR ATTENDANT) Narrative 06/13/2017 10:19 PM SNACK BAR ATTENDANT Ordered by an unspecified provider. Scanned Document CARDIAC SERVICES ORD ERABLES * NONSTRESS TEST (06/10/2017 9:32 AM SNACK BAR ATTENDANT) Narrative Heather Bansal MD - 06/10/2017 9:32 AM SNACK BAR ATTENDANT Erin Davalos RN 06/09/2017 8:48 AM Name: Stefanie Davies Date of : 1990 Today's Date: 06/09/2017 NST RESULTS (GARCIA) OBJECTIVE FINDINGS Temp: 98.3 F, , Resp: 16, BP: 117/74 NST Indication(s): Other (Comment) (in weu to r/o PE) Uterine Irritability: No Contractions: Irregular Frequency: irregular Duration (sec) Range: 70-100 Perceived Intensity: Mild OBJECTIVE FINDINGS Movement: Present Monitoring Mode: External Baseline: 120 BPM Variability: Moderate Decelerations: None Accelerations: Yes OTHER INFORMATION Erin Davalos, VANDANA Pema Uribe MD OB GYNE ORDERABLE S * (ABNORMAL) RESPIRATORY PATHOGEN PANEL BY PCR (06/09/2017 8:26 AM SNACK BAR ATTENDANT) Adenovirus PCR Not detected Not detected, Invalid, Indeterminate 06/09/2017 2:12 PM [facility] Human Metapneumovirus PCR Not detected Not detected, Invalid, Indeterminate 06/09/2017 2:12 PM [facility] Human Rhinovirus/Entero virus PCR Not detected Not detected, Invalid, Indeterminate 06/09/2017 2:12 PM [facility] Influenza A Non Subtyped PCR Not detected Not detected, Invalid, Indeterminate 06/09/2017 2:12 PM [facility] Influenza A H1 PCR Not detected Not detected, Invalid, Indeterminate 06/09/2017 2:12 PM [facility] Influenza A H3 PCR Not detected Not detected, Invalid, Indeterminate 06/09/2017 2:12 PM [facility] Influenza A H1 2009 PCR Not detected Not detected, Invalid, Indeterminate 06/09/2017 2:12 PM [facility] Influenza B PCR Not detected Not detected, Invalid, Indeterminate 06/09/2017 2:12 PM [facility] Mycoplasma pneumoniae PCR Not detected Not detected, Invalid, Indeterminate 06/09/2017 2:12 PM [facility] Parainfluenza Virus 1 PCR Detected(A ) Not detected, Invalid, Indeterminate 06/09/2017 2:12 PM [facility] Parainfluenza Virus 2 PCR Not detected Not detected, Invalid, Indeterminate 06/09/2017 2:12 PM [facility] Parainfluenza Virus 3 PCR Not detected Not detected, Invalid, Indeterminate 06/09/2017 2:12 PM [facility] Parainfluenza Virus 4 PCR Not detected Not detected, Invalid, Indeterminate 06/09/2017 2:12 PM [facility] Respiratory Syncytial Virus PCR Not detected Not detected, Invalid, Indeterminate 06/09/2017 2:12 PM [facility] Bordetella pertussis PCR Not detected Not detected, Invalid 06/09/2017 2:12 PM [facility] Coronavirus PCR Not detected Not detected, Invalid, Indeterminate 06/09/2017 2:12 PM [facility] Microbiology NASOPHARYNGEAL SWAB / Unknown Collection / Unknown 06/09/2017 8:26 AM SNACK BAR ATTENDANT 06/09/2017 8:42 AM SNACK BAR ATTENDANT Narrative [facility] - 06/09/2017 2:12 PM SNACK BAR ATTENDANT Contact and Droplet Precautions Required. Coronavirus PCR detects the following coronaviruses: 229E, HKU1, NL63, OC43. Mary Montesinos MD LAB - MICROBIOLOGY O RDERABLES [facility] [address] [place] [address], [facility] [phone] * CT CHEST PE (06/09/2017 6:01 AM SNACK BAR ATTENDANT) Anatomical Region Laterality Modality Chest Computed Tomogra phy 06/09/2017 7:41 AM SNACK BAR ATTENDANT Impressions 06/09/2017 7:54 AM SNACK BAR ATTENDANT 1. Negative for pulmonary embolism or aortic dissection. 2. A small sliding hiatal hernia. 3. The lungs are clear. 4. Bilateral axillary lymphadenopathy. The largest lymph node measures 13 mm in short axis. 5. Apparently the patient is in third trimester . Narrative 06/09/2017 7:[address] CHEST, PE PROTOCOL, WITH INTRAVENOUS CONTRAST. HISTORY: Shortness of breath Suspected pulmonary embolism. COMPARISON: None. TECHNIQUE: Spiral axial scanning of the chest was performed after intravenous contrast administration, followed by coronal and sagittal reconstruction of the images by the technologist. Total of 100 mL of Omnipaque 350 contrast was used. The radiation exposure as measured by the dose length product (DLP) is 678.39 mGy-cm. FINDINGS: Opacification of the pulmonary arteries is slightly suboptimal; however, there are no intraluminal filling defects in the bilateral central, lobar and segmental pulmonary arteries to suggest pulmonary embolism on either side. The central pulmonary arteries have normal size and there is no evidence of strain on heart. The heart is not enlarged. Aorta appears normal for age without rupture, dissection or significant atherosclerotic changes. There is a small hiatal hernia. No esophageal wall thickening is identified. There is no evidence of pneumothoraces or pleural effusions. There is bilateral axillary lymphadenopathy. No other pathologically enlarged lymph nodes are identified in the chest or in the upper abdomen. The largest lymph node measures 13 mm in short axis on the right side. The lungs are clear on lung window images. No suspicious groundglass opacities, reticulations, pulmonary consolidations or suspicious pulmonary nodules are identified. The trachea and bronchi have normal size without evidence of endoluminal lesions. The imaged portion of the upper abdomen, demonstrates a partially imaged, partially calcified mass which apparently is a partially imaged fetus in the enlarged uterus. The remainder of the imaged portion of the upper abdomen is unremarkable. The bone window images are within normal limits for the patient's age. Procedure Note Aamir Chanel MD - 06/09/2017 CT CHEST, PE PROTOCOL, WITH INTRAVENOUS CONTRAST. HISTORY: Shortness of breath Suspected pulmonary embolism. COMPARISON: None. TECHNIQUE: Spiral axial scanning of the chest was performed after intravenous contrast administration, followed by coronal and sagittal reconstruction of the images by the technologist. Total of 100 mL of Omnipaque 350 contrast was used. The radiation exposure as measured by the dose length product (DLP) is 678.39 mGy-cm. FINDINGS: Opacification of the pulmonary arteries is slightly suboptimal; however, there are no intraluminal filling defects in the bilateral central, lobar and segmental pulmonary arteries to suggest pulmonary embolism on either side. The central pulmonary arteries have normal size and there is no evidence of strain on heart. The heart is not enlarged. Aorta appears normal for age without rupture, dissection or significant atherosclerotic changes. There is a small hiatal hernia. No esophageal wall thickening is identified. There is no evidence of pneumothoraces or pleural effusions. There is bilateral axillary lymphadenopathy. No other pathologically enlarged lymph nodes are identified in the chest or in the upper abdomen. The largest lymph node measures 13 mm in short axis on the right side. The lungs are clear on lung window images. No suspicious groundglass opacities, reticulations, pulmonary consolidations or suspicious pulmonary nodules are identified. The trachea and bronchi have normal size without evidence of endoluminal lesions. The imaged portion of the upper abdomen, demonstrates a partially imaged, partially calcified mass which apparently is a partially imaged fetus in the enlarged uterus. The remainder of the imaged portion of the upper abdomen is unremarkable. The bone window images are within normal limits for the patient's age. IMPRESSION 1. Negative for pulmonary embolism or aortic dissection. 2. A small sliding hiatal hernia. 3. The lungs are clear. 4. Bilateral axillary lymphadenopathy. The largest lymph node measures 13 mm in short axis. 5. Apparently the patient is in third trimester . Carlos Esposito MD CT ORDERABLES Care Teams Oracle Engineer Relationship Specialty Start Date End Date Chico Denise MD PCP - General Family Medicine 06/09/17
--- OUTSIDE RECORDS SUMMARY | 2024-09-15 23:59 | XMS_ITS | Referral Summary ---
Author Organization [facility] Address [address] [place] [address] Care Team Providers Care Bead Stringer Name Role Phone Chico Denise MD Primary Care Provider Source Comments [facility],non-owned Affiliates and Associated Physician Practices is amultiple site organization consisting of ambulatory clinics and hospital sitesin [place], [place] and [place]. This disclosure is being madepursuant to the Care Everywhere program and may not contain all information available regarding this patient. Last updated 18.[facility] Allergies Active Allergy Reactions Criticality Noted Date [...] Comments Blood Pressure 117/74 06/09/2017 8:37 AM CAR ESCORT Pulse 75 02/09/2016 7:04 AM CDT Temperature 36.8 C (98.3 F) 06/09/2017 6:36 AM CAR ESCORT Respiratory Rate 16 06/09/2017 7:39 AM CAR ESCORT Oxygen Saturation 98% 06/09/2017 8:39 AM CAR ESCORT Inhaled Oxygen Concentration - - Weight 62.6 kg (138 lb) 02/09/2016 7:04 AM CDT Height 162.6 cm (5' 4.02 ) 02/09/2016 7:04 AM CD T Body Mass Index 23.68 02/09/2016 7:04 AM CDT Functional Status Functional Status Response Date of Assess ment Is person deaf or have serious hearing difficult y? No 06/09/2017 Is person blind or have serious difficulty seein g? No 06/09/2017 Does person have serious dif ficulty walking/climbing stairs? No 06/09/2017 Does person have difficulty dressing/bathing? No 06/09/2017 Does person have difficulty doing errands alone? No 06/09/2017 Cognitive Status Response Date of Assessm ent Does person have difficulty concentrating/remembering/making decisions? No 06/09/2017 Plan of Treatment Not on file Advance Directives * Full Code (Latest Code Status on File) Date Activated Date Inactivated Comments 06/09/2017 7:32 AM 06/09/2017 10:03 AM * Full Code Date Activated Date Inactivated Comments 06/09/2017 5:13 AM 06/09/2017 7:32 AM Care Teams Bead Stringer Relationship Specialty Start Date End Date Chico Denise MD PCP - General Family Medicine 06/09/17
--- OUTSIDE RECORDS SUMMARY | 2024-09-15 23:59 | XMS_ITS | Clinical Summary ---
[facility] Organization [facility] Address [address] [place] [id number] Care Team Providers Care Mainframe Applications Developer Name Role Phone Parent, Dana DeanMalathi CALDERON Primary Care Provider [phone] Allergies Active Allergy Reactions Criticality Noted Date Comments Cephalexin Rash Medium 06/09/2017 Penicillins Swelling Medium 02/09/2016 Medications [id number] -epa-fish oil 400 mcg-35 mg -25 mg-5 mg tablet,chewable Take by mouth Active doxycycline monohydrate (MONODOX) 100 mg capsule 1 Active diphenhydrAMINE (diphenhydrAMINE ) 25 mg capsule Take 25 mg by mouth every 6 (six) hours as needed for itching Active spironolactone (ALDACTONE) 100 mg tablet 2 tablets (200 mg total) Active drospirenone, contraceptive, (Slynd) tablet tablet Take 1 each (4 mg total) by mouth daily 28 tablet 11 3 Active Additional Information Patient not taking.Reported on 10/28/2023 Active Problems Problem Noted Date Diagnosed Date Migraine 04/01/2020 Resolved Problems Problem Noted Date Diagnosed Date Resolved Date Supervision of other normal , antepartum 04/01/2020 12/03/2020 Overview (04/01/2020): First Trimester: [x] Labs [] Genetic Screeninnd Trimester: [] Anatomy ultrasound 3rd Trimester: [] CBC, HIV, syphilis screen [] 1hr GCT (26-28wks): [] Tdap (27-36wks) [] Rhogam (if Rh neg): [] GBS Positive urine drug screen 04/01/2020 0 12/03/2020 Overview (04/01/2020): Marijuana positive History of section 04/01/2020 12/03/2020 Surgical History Surgery Date Site/Laterality Comments SECTION Medical History Medical History Date Comments Hidradenitis Abnormal Pap smear of cervix HPV (human papilloma virus) infection Family History Medical History Relation Name Comments Hypertension Maternal Grandmother Hypertension Mother Breast cancer Neg Hx Ovarian cancer Neg Hx Relation Name Status Comments Father Alive Maternal Grandmother Mother Alive Social History Tobacco Use Types Packs/Day Years Used Date Smoking Tobacco: Never Smokeless Tobacco: Never Alcohol Use Standard Drinks/Week Comments Not Currently 0 (1 standard drink = 0.6 oz pur e alcohol) Madison Depression Scale Answer Date Recorded Madison Depression Scale Total 0 12/01/2020 The thought of harming myself has occurred to me . Never 12/01/2020 Personal Safety Answer Date Recorded Getting School Help Needed Not on file 08/28 Comments No Sex and Gender Information Value Date Recorded Sex Assigned at Not on file Legal Sex Female 12:55 PM CDT Gender Identity Not on file Sexual Orientation Not on file Obstetrics History Para Term AB IAB SAB Ectopic Multiple Livin g Live Births 3 2 2 1 1 2 2 Date Outcome GA Total Labor Labor/2nd/3rd Weight Sex Type Anes PTL Mariah A1 A5 Name Clin 2010 SAB 2016 Term 38w 0d 2.211 kg (4 lb 14 oz) M CS-LT ranv Combin ed Spinal /Epidu ral N Livin fredy Parker Hernández Cothro n, DO Delivery Location:[facility] Fac[facility] 2020 Term 39w 0d 2.466 kg (5 lb 7 oz) F CS-Un spec Livkeven fredy Parker Hernández Cothro n, DO Delivery Location:[facility] Last Filed Vital Signs Vital Sign Reading Time Taken Comments Blood Pressure 114/60 10/28/2023 3:01 PM CDT Pulse 72 10/10/2020 8:13 AM ALTITUDE CHAMBER TECHNICIAN Temperature 36.7 C (98 F) 10/10/2020 8:13 AM ALTITUDE CHAMBER TECHNICIAN Respiratory Rate - - Oxygen Saturation 100% 10/10/2020 8:13 AM ALTITUDE CHAMBER TECHNICIAN Inhaled Oxygen Concentration - - Weight 75.3 kg (166 lb) 10/28/2023 3:01 PM CDT Height 162.6 cm (5' 4 ) 10/28/2023 3:01 PM CDT Body Mass Index 28.49 10/28/2023 3:01 PM CDT Plan of Treatment Health Maintenance Due Date Last Done Comments Depression Screening 12/01/2021 12/01/2020 Cervical Cancer Screening 10/21/2023 10/20/2022 Influenza Vaccine (#1) 2024 9, 06/17/2017, 05/06/2015, Additional history exists Regular Well Visit/Exam 18-64 10/27/2024 10/28/2023, 10/20/2022, 04/14/2021, Additional history exists DTaP/Tdap/Td Vaccine (10 - Td or Tdap) 08/28/2030 08/28/2020, 04/12/2017, 03/12/2015, Additional history exists Varicella Vaccines Completed 12/15/2007, 03/28/1996 HPV Vaccines Completed 09/11/2015, 12/2014, 03/12/2015 Hepatitis C Screening Completed 09/21/2023 , 03/10/2020, 11/11/2016 Pneumococcal vaccine <65 Aged Out No longer eligible based on patient's age to complete this topic Procedures Procedure Name Priority Date/Time Associated Diagnosis Comments HEPATITIS C ANTIBODY Routine 09/21/2023 5:31 PM ALTITUDE CHAMBER TECHNICIAN Screening for STD (sexually transmitted disease) PAP WITH REFLEX TO HIGH RISK HPV Routine 10/20/2022 10:22 AM CDT Screening for STD (sexually transmitted disease) Encounter for screening for malignant neoplasm of cervix from Last 3 Months or Most Recently Relevant to Health Maintenance Results * Hepatitis C antibody Blood (09/21/2023 5:31 PM ALTITUDE CHAMBER TECHNICIAN) Hep C Ab Nonreactive Nonreactive SEFERINO ROQUE Comment: Antibodies to HCV not detected. Does NOT exclude the possibility of recent exposure to HCV. Current interpretive data was last revised on 22 Interpretive Data Nonreactive: Antibodies to HCV not detected. Does NOT exclude the possibility of recent exposure to HCV. Equivocal: Equivocal for HCV antibodies. Supplemental molecular testing will be automatically performed to determine infection status in accordance with current CDC screening recommendations. Reactive: Positive for HCV antibodies. This may represent current or past HCV infection. Supplemental molecular testing will be automatically performed to determine current infection status in accordance with current CDC screening recommendations. Interpretive data was last revised on 2019. Blood 09/21/2023 5:31 PM ALTITUDE CHAMBER TECHNICIAN 09/21/2023 8:13 PM ALTITUDE CHAMBER TECHNICIAN us Rico Roper MD LAB MICROBIOLOGY - GENER AL ORDERABLES Edited Result - Final [facility] [address] [facility] Department [place] [address] * Pap with reflex to High Risk HPV (10/20/2022 10:22 AM CDT) Vaginal (Pap test) 10/20/2022 10:22 AM CDT 10/21/2022 10:22 AM CDT Narrative PATHOLOGY [facility] - 10/26/2022 12:51 PM CDT [facility] Department of Pathology [address] [place] [address] Final Report Note to Patients: This report may contain a detailed description of human tissue sent by a health care provider to the laboratory for pathologic evaluation. The content of this report is essential for diagnosis and may provide important critical findings. This information may be unfamiliar to patients to review without a medical professional present. It is advised that the patient review this report in the presence of a health care provider who can answer questions and explain the details. Patient Name: SHIKHA DAVIES Address: [address] [place], [place] [id number] Gender: F : 1990 (Age: 31) Service: Location: [facility] #: [id number] Patient Type: MHE SPECIMEN Taken: 10/20/2022 Received: 10/21/2022 Accessioned:: 10/22/2022 Reported: 10/26/2022 Physician(s): Rico Roper M.D. [facility] Diagnosis: SOURCE OF SPECIMEN Imaged Thinprep Pap Test w/ Reflex HPV - Staffing Mgr Cytologic Material: STATEMENT OF ADEQUACY - Satisfactory for evaluation; endocervical/transformation zone component present GENERAL CATEGORIZATION: - Negative for intraepithelial lesion or malignancy BRICE Ortiz(ASCP)BRICE Stone(ASCP) Report Electronically Reviewed and Signed Out By BRICE Stone(ASCP) 10/26/2022 12:51:07Specimen(s) Received: A: Imaged Thinprep Pap Test w/ Reflex HPV - Staffing Mgr Cytologic Material Clinical History: Last Menstrual Period: 10/02/2022 Menstrual History: Routine Checkup The Pap test is a screening test used to aid in the detection of cervical cancer and its precursors. It should not be the sole means by which malignant and premalignant lesions are diagnosed. Both false negative and false positive results may occur. It also has poor sensitivity for the detection of endometrial lesions and should not be used to evaluate suspected endometrial abnormalities. For these reasons it is most important to obtain Pap tests at regular intervals. The performance characteristics of some immunohistochemical stains, fluorescence in-situ hybridization tests and immunophenotyping by flow cytometry cited in this report (if any) were determined by the Surgical Pathology Department at [facility] as part of an ongoing quality cloth tester program and in compliance with federally mandated regulations drawn from the Clinical Laboratory Improvement Act of 1988 (CLIA '88). Some of these tests rely on the use of analyte specific reagents and are subject to specific labeling requirements by the US Food and Drug Administration. Such diagnostic tests may only be performed in a facility that is certified by the Department of Health and Human Services as a high complexity laboratory under CLIA '88. The FDA has determined that such clearance or approval is not necessary. This test is used for clinical purposes. It should not be regarded as investigational or for research. Nevertheless, federal rules concerning the medical use of analyte specific reagents require that the following disclaimer be attached to the report: This test was developed and its performance characteristics determined by the Surgical Pathology Department [facility]. It has not been cleared or approved by the U. S. Food and Drug Administration. Rico Roper MD LAB CYTOLOGY ORDERABLES Final Result PATHOLOGY [facility] from Last 3 Months or Most Recently Relevant to Health Maintenance Insurance [facility] CHOICE PLUS IDMD [facility] [employer] HMO Care Teams Mainframe Applications Developer Relationship Specialty Start Date End Date Dana Saunders PA PCP - General Family Practice 09/21/23
--- OUTSIDE RECORDS SUMMARY | 2024-09-15 23:59 | XMS_ITS | Referral Summary ---
Author Organization [facility] Address [address] [place] [phone] Care Team Providers Care Oil Gauger Name Role Phone Parent, Dana DeanMalathi CALDERON Primary Care Provider [phone] Allergies Active Allergy Reactions Criticality Noted Date Comments Cephalexin Rash Medium 06/09/2017 Penicillins Swelling Medium 02/09/2016 Medications [id number] -epa-fish oil 400 mcg-35 mg -25 mg-5 [...] Marijuana positive History of section 04/01/2020 12/03/2020 Social History Tobacco Use Types Packs/Day Years Used Date Smoking Tobacco: Never Smokeless Tobacco: Never Alcohol Use Standard Drinks/Week Comments Not Currently 0 (1 standard drink = 0.6 oz pur e alcohol) Jefferson Depression Scale Answer Date Recorded Jefferson Depression Scale Total 0 12/01/2020 The thought [...] PM CDT Pulse 72 10/10/2020 8:13 AM TEMPORARY ADMINISTRATIVE ASSISTANT Temperature 36.7 C (98 F) 10/10/2020 8:13 AM TEMPORARY ADMINISTRATIVE ASSISTANT Respiratory Rate - - Oxygen Saturation 100% 10/10/2020 8:13 AM TEMPORARY ADMINISTRATIVE ASSISTANT Inhaled Oxygen Concentration - - Weight 75.3 kg (166 lb) 10/28/2023 3:01 PM CDT Height 162.6 cm (5' 4 ) 10/28/2023 3:01 PM CDT Body Mass Index 28.49 10/28/2023 3:01 PM CDT Plan of Treatment Not on file Procedures Procedure Name Priority Date/Time Associated Diagnosis Comments HEPATITIS C ANTIBODY Routine 09/21/2023 5:31 PM TEMPORARY ADMINISTRATIVE ASSISTANT Screening for STD (sexually transmitted disease) PAP WITH REFLEX TO HIGH RISK HPV Routine 10/20/2022 10:22 AM CDT Screening for STD (sexually transmitted disease) Encounter for screening for malignant neoplasm of cervix from Last 3 Months or Most Recently Relevant to Health Maintenance Results * Hepatitis C antibody Blood (09/21/2023 5:31 PM TEMPORARY ADMINISTRATIVE ASSISTANT) Hep C Ab Nonreactive Nonreactive SEFERINO ROQUE [...] revised on 2019. Blood 09/21/2023 5:31 PM TEMPORARY ADMINISTRATIVE ASSISTANT 09/21/2023 8:13 PM TEMPORARY ADMINISTRATIVE ASSISTANT us Rico Roper MD LAB MICROBIOLOGY - GENER AL ORDERABLES Edited Result - Final [facility] [address] [facility] Department [place] [address] * Pap with reflex to High Risk HPV (10/20/2022 10:22 AM CDT) Vaginal (Pap test) 10/20/2022 10:22 AM CDT 10/21/2022 10:22 AM CDT Narrative PATHOLOGY [facility] - 10/26/2022 12:51 PM CDT [facility] Department of Pathology [address] [place] [id number] Final Report Note to Patients: This report [...] the details. Patient Name: SHIKHA DAVIES Address: [address] [place] [address] Gender: F : 1990 (Age: 31) Service: Location: [facility] #: [id number] Patient Type: [facility] SPECIMEN Taken: 10/20/2022 Received: 10/21/2022 Accessioned:: 10/22/2022 Reported: 10/26/2022 Physician(s): Rico Roper M.D. [facility] Diagnosis: SOURCE OF SPECIMEN Imaged Thinprep Pap Test w/ Reflex HPV - Rod Hanger Cytologic Material: STATEMENT OF ADEQUACY - Satisfactory for evaluation; endocervical/transformation zone component present GENERAL CATEGORIZATION: - Negative for intraepithelial lesion or malignancy BRICE Ortiz(ASCP)BRICE Stone(ASCP) Report Electronically Reviewed and Signed Out By BRICE Stone(ASCP) 10/26/2022 12:51:07Specimen(s) Received: A: Imaged Thinprep Pap Test w/ Reflex HPV - Rod Hanger Cytologic Material Clinical History: Last Menstrual Period: [...] determined by the Surgical Pathology Department at [facility] as part of an ongoing quality process lead program and in compliance with federally mandated [...] characteristics determined by the Surgical Pathology Department [facility]. It has not been cleared or approved by the U. S. Food and Drug Administration. Rico Roper MD LAB CYTOLOGY ORDERABLES Final Result PATHOLOGY [facility] from Last 3 Months or Most Recently Relevant to Health Maintenance Insurance [facility] CHOICE PLUS IDPA [facility] [employer] HMO Care Teams Oil Gauger Relationship Specialty Start Date End Date Dana Saunders PA PCP - General Family Practice 09/21/23
--- OUTSIDE RECORDS SUMMARY | 2024-09-15 23:59 | XMS_ITS | Encounter Summary ---
Author Organization [facility] Facility Care Team Providers Care Military Technician Name Role Phone Shannen Huffman MD Primary Care Provider [phone] ParentDana Primary Care Provider [phone] Encounter Details Date Type Department Care Team (Latest Contact Info) Description 10/21/2016 Orders Only [facility] CLINCONV ProviderNona MD [address] [place] [id number] Social History Tobacco Use Types Packs/Day [...] Date/Time Associated Diagnosis Comments SCAN - LABS 11/05/2016 12:00 AM CDT documented in this encounter Results * SCAN - LABS (11/05/2016 12:00 AM CDT) Narrative 11/05/2016 12:00 AM CDT Ordered by an unspecified provider. Historical Provider Final Res ult documented in this encounter Visit Diagnoses Not on filedocumented in this encounter Care Teams Military Technician Relationship Specialty Start Date End Date Shannen Huffman MD [address] [address] PCP - General 05/20/17 09/20/23 Parent, KVNG Hilton [address] [address] PCP - General Family Practice 09/21/23 documented as of this encounter
--- OUTSIDE RECORDS SUMMARY | 2024-09-15 23:59 | XMS_ITS | Encounter Summary ---
Author Organization [facility] Facility Care Team Providers Care Sales Representative Printing Name Role Phone Shannen Huffman MD Primary Care Provider [phone] ParentDana Primary Care Provider [phone] Encounter Details Date Type Department Care Team (Latest Contact Info) Description 06/15/2017 Orders Only [facility] CLINCONV ProviderNona MD [address] [place] [id number] Social History Tobacco Use Types Packs/Day [...] Priority Date/Time Associated Diagnosis Comments SCAN - PATHOLOGY 06/15/2017 12:0 0 AM STRINGER MACHINE TENDER documented in this encounter Results * SCAN - PATHOLOGY (06/15/2017 12:00 AM STRINGER MACHINE TENDER) Narrative 06/15/2017 12:00 AM STRINGER MACHINE TENDER Ordered by an unspecified provider. Historical Provider Final Res ult documented in this encounter Visit Diagnoses Not on filedocumented in this encounter Care Teams Sales Representative Printing Relationship Specialty Start Date End Date Shannen Huffman MD [address] [address] PCP - General 05/20/17 09/20/23 Parent, KVNG Hilton [address] [address] PCP - General Family Practice 09/21/23 documented as of this encounter
[2024-09-16 00:29] VITALS: BP 99/53; PULSE 80; RESP 16; O2SAT 100
[2024-09-16 00:40] LABS: Influenza A QL RT-PCR Negative (Negative); Influenza B QL RT-PCR Negative (Negative); RSV RNA, RT-PCR Negative (Negative); SARS-CoV-2 RNA PCR Negative (Negative)
[2024-09-16] MEDS: SODIUM CHLORIDE 0.9% IV 1,000 ML 999 ML IV CONT (00:46)
[2024-09-16] MEDS: ONDANSETRON INJ 4 MG/2 ML VIAL IV PUSH (00:46)
[2024-09-16] MEDS: KETOROLAC 15 MG/ML VIAL (*BKC) IV PUSH (00:46)
[2024-09-16 01:05] LABS: Alanine Aminotransferase 20 U/L (6-35); Albumin Level 4.4 g/dL (3.5-5.1); Alkaline Phosphatase 71 U/L (38-126); Anion Gap 14 mmol/L (4-12); Aspartate Amino Transferase 40 U/L (14-36); Bilirubin,Total 0.8 mg/dL (0.2-1.3); Blood Urea Nitrogen 16 mg/dL (7-17); Calcium 9.2 mg/dL (8.4-10.2); Carbon Dioxide 22 mmol/L (22-30); Chloride 103 mmol/L (98-107); Estimated CRCL calculation 72 ml/min; Estimated Glomerular Filt Rate > 60; Glucose 98 mg/dL (65-110); Lipase 54 U/L (23-300); Potassium 3.7 mmol/L (3.4-5.0); Sodium 139 mmol/L (137-145)
[2024-09-16 01:13] LABS: Basophils Percent Auto 0.2 % (0.2-1.2); Hematocrit 33.2 % (37.0-47.0); Hemoglobin 11.3 g/dL (12.0-15.0); Immature Granulocyte Absolute 0.03 K/mm3 (0.00-0.031); Immature Granulocyte Percent A 0.4 % (0-0.5); Lymphocytes Absolute Auto 1.44 K/mm3 (0.9-3.2); Lymphocytes Percent Auto 17.3 % (18.3-44.2); Mean Corpuscular Hemoglobin 28.8 pg (26-34); Mean Corpuscular Volume 84.5 fl (80-100); Mean Platelet Volume 10.2 fl (7.4-10.4); Monocytes Absolute Auto 0.6 K/mm3 (0.1-0.6); Monocytes Percent Auto 7.7 % (2.6-8.5); Neutrophils Absolute Auto 6.2 K/mm3 (1.3-6.7); Neutrophils Percent Auto 74.4 % (45.5-73.1); Platelet Count Result 225 k/mm3 (150-375); Red Blood Count 3.93 M/mm3 (4.2-5.4); Red Cell Distribution Width 12.4 % (11.5-14.5); White Blood Count 8.3 K/mm3 (4.5-10.0)
--- NOTE | 2024-09-16 01:22 | ED.GENADULT ---
HPI - General Adult General Chief complaint: Nausea/Vomiting/Diarrhea Stated complaint: flu-like symptoms Time Seen by Provider: 09/15/24 23:44 History of Present Illness HPI narrative: This is a 33-year-old female presenting ED with chief complaint of flu-like symptoms. Symptoms included headache, nausea vomiting and fevers. No chest pain difficulty breathing or abdominal pain or urinary symptoms. Patient has a sick child at home. Related Data Allergies Allergy/AdvReac Type Severity Reaction Status Date / Time cephalexin (From Keflex) Allergy Rash Verified 09/15/24 23:35 Penicillins Allergy Anaphylactic Verified 09/15/24 23:35 reaction to DTAP Exam Narrative: APPEARANCE: No apparent distress. Head: atraumatic. EYES: EOMI, NOSE: Atraumatic NECK: Trachea midline RESPIRATORY: No increased rate of breathing CTAB CARDIOVASCULAR: RRR, ABDOMINAL: Non-distended soft nontender MUSCULOSKELETAl: No obvious deformities NEURO: Alert. Moving 4/4 extremities SKIN:: Warm, dry. Normal color PSYCHIATRIC: Normal affect Course Vital Signs Vital signs: Vital Signs Temperature 100.1 F H 09/15/24 23:30 Pulse Rate 93 09/15/24 23:30 Respiratory Rate 16 09/15/24 23:30 Blood Pressure 102/82 09/15/24 23:30 Pulse Oximetry 98 09/15/24 23:30 Oxygen Delivery Room Air 09/15/24 23:30 Temperature 100.1 F H 09/15/24 23:30 Pulse Rate 80 09/16/24 00:29 Respiratory Rate 16 09/16/24 00:29 Blood Pressure 99/53 L 09/16/24 00:29 Pulse Oximetry 100 09/16/24 00:29 Oxygen Delivery Room Air 09/15/24 23:30 Medical Decision Making [facility] Narrative Medical decision making narrative: -Course: A 33-year-old female presenting with flu-like symptoms. Viral swabs negative. Labs within expected limits. Patient given fluids and antiemetics with improvement. Patient will be discharged with antiemetics and antipyretics. Return precautions -DDX includes but is not limited to: COVID flu viral syndrome gastroenteritis Vital Signs Vital Signs: Vital Signs Temperature 100.1 F H 09/15/24 23:30 Pulse Rate 93 09/15/24 23:30 Respiratory Rate 16 09/15/24 23:30 Blood Pressure 102/82 09/15/24 23:30 Pulse Oximetry 98 09/15/24 23:30 Oxygen Delivery Room Air 09/15/24 23:30 Temperature 100.1 F H 09/15/24 23:30 Pulse Rate 80 09/16/24 00:29 Respiratory Rate 16 09/16/24 00:29 Blood Pressure 99/53 L 09/16/24 00:29 Pulse Oximetry 100 09/16/24 00:29 Oxygen Delivery Room Air 09/15/24 23:30 Lab Data 09/16/24 00:45 09/16/24 00:45 Labs: Lab Results 09/15/24 09/16/24 Range/Units 23:59 00:45 WBC 8.3 (4.5-10.0) K/mm3 RBC 3.93 L (4.2-5.4) M/mm3 Hgb 11.3 L (12.0-15.0) g/dL Hct 33.2 L (37.0-47.0) % MCV 84.5 (80-100) fl MCH 28.8 (26-34) pg MCHC 34.0 (32-36) g/dl RDW 12.4 (11.5-14.5) % Plt Count 225 (150-375) k/mm3 MPV 10.2 (7.4-10.4) fl Immature Gran % (Auto) 0.4 (0-0.5) % Neut % (Auto) 74.4 H (45.5-73.1) % Lymph % (Auto) 17.3 L (18.3-44.2) % Baxter % (Auto) 7.7 (2.6-8.5) % Eos % (Auto) 0.0 (0-4.4) % Baso % (Auto) 0.2 (0.2-1.2) % Lymph # (Auto) 1.44 (0.9-3.2) K/mm3 Baxter # (Auto) 0.6 (0.1-0.6) K/mm3 Eos # (Auto) 0.0 (0-0.3) K/mm3 Baso # (Auto) 0.0 (0.0-0.1) K/mm3 Abs Immat Gran (auto) 0.03 (0.00-0.031) K/mm3 Absolute Neuts (auto) 6.2 (1.3-6.7) K/mm3 Absolute Nucleated RBC 0.000 (0.0-0.012) K/mm3 Nucleated RBC % 0.0 (0.0-0.2) % Sodium 139 (137-145) mmol/L Potassium 3.7 (3.4-5.0) mmol/L Chloride 103 (98-107) mmol/L Carbon Dioxide 22 (22-30) mmol/L Anion Gap 14 H (4-12) mmol/L BUN 16 (7-17) mg/dL Creatinine 0.85 (0.7-1.0) mg/dL Estim Creat Clear Calc 72 ml/min Estimated GFR > 60 (59 - ) Glucose 98 (65-110) mg/dL Calcium 9.2 (8.4-10.2) mg/dL Total Bilirubin 0.8 (0.2-1.3) mg/dL AST 40 H (14-36) U/L ALT 20 (6-35) U/L Alkaline Phosphatase 71 (38-126) U/L Total Protein 9.0 H (6.3-8.2) g/dL Albumin 4.4 (3.5-5.1) g/dL Lipase 54 (23-300) U/L Influenza A (RT-PCR) Negative (Negative) Influenza B (RT-PCR) Negative (Negative) RSV (RT-PCR) Negative (Negative) SARS-CoV-2 RNA (RT-PCR) Negative (Negative) Discharge Plan Discharge Clinical Impression: Acute viral syndrome Patient Disposition: Home, Self-Care Condition: Stable Instructions: Antibiotic Form, Viral Syndrome (ED) Additional Instructions: You were seen in the emergency department for fevers. Please take Motrin/Tylenol for fevers. Use Zofran for nausea. Return to ED if you develop chest pain, difficulty breathing, abdominal pain or if you are getting worse. Patient Language: Iraqi Prescriptions: New ibuprofen 800 mg tablet 800 mg PO TID PRN (Reason: pain) 7 Days Qty: 21 0RF acetaminophen 500 mg tablet 1,000 mg PO TID PRN (Reason: mandy) 7 Days Qty: 42 0RF ondansetron 4 mg tablet,disintegrating 4 mg PO Q8H PRN (Reason: nausea and vomiting) Qty: 30 0RF Follow-up/Referrals: Parent,KVNG Hilton [Primary Care Provider] -
[2024-09-16 02:32] LABS: Add Urine Microscopic? YES; Appearance Urine Cloudy (Clear); Bacteria Urine None Seen /hpf; Bilirubin Urine 1+ (Negative); Blood Urine Negative (Negative); Color Urine Dark Yellow (Yellow); Glucose Urine UA Negative (Negative); Ketones Urine 2+ mg/dL (Negative); Leukocyte Esterase Ur Negative LEU/UL (Negative); Need Manual Microscopic Reviewed; Nitrate Urine Negative (Negative); Protein Urine 2+ mg/dL (Negative); Specific Grav Ur 1.034 (1.001-1.035); Squamous Epithelial Cell Urine Moderate /hpf (Few); WBC Urine 0-5 /hpf (0-3); pH Urine 5.5 (5.0-9.0)
[2024-09-16 02:39] LABS: BEDSIDEPREGUCG Negative (Negative)
== END 2024-09-16 02:43 | disposition home or self-care (01) ==
PROVIDERS: Emergency Provider Emergency Medicine; PCP Physician Assistant
DX: B34.9 Viral infection, unspecified (principal); Z20.822 Contact with and (suspected) exposure to COVID-19
CPT/HCPCS: 36415; 80053; 81001; 81025; 83690; 85025; 87637; 96361; 96374; 96375; 99284; J1885; J2405; J7030